=== PATIENT | male | born 1980 | race Two or more races ===

== ENCOUNTER 2019-05-22 21:32 | Emergency (ER) | payer SELFPAY ==
[~2019-05-22] VITALS: Ht 175.3 cm; Wt 95.4 kg
[2019-05-22] MEDS ORDERED: ALBUTEROL 6.7GM HFA INHALER ORI ONE (23:45)
[2019-05-23] MEDS ORDERED: CLONIDINE 0.2MG TABLET PO SCH (01:22)
[2019-05-23 01:45] VITALS: BP 155/89
== END 2019-05-23 01:51 | disposition home or self-care (01) ==
LOC: ER 21:32
DX: U07.1 COVID-19 (principal); J98.8 Other specified respiratory disorders; J40 Bronchitis, not specified as acute or chronic; I10 Essential (primary) hypertension
CPT/HCPCS: 99283; Z7610